=== PATIENT | female | born 1960 | race Caucasian/White ===

== ENCOUNTER → 2017-02-26 | Emergency (ER) | payer MEDICAID, SELFPAY | PROVIDERS: Family Provider Nurse Practitioner Family | DX: H69.83 Other specified disorders of Eustachian tube, bilateral (principal); F17.210 Nicotine dependence, cigarettes, uncomplicated; E11.9 Type 2 diabetes mellitus without complications; I10 Essential (primary) hypertension; J44.9 Chronic obstructive pulmonary disease, unspecified; K21.9 Gastro-esophageal reflux disease without esophagitis; Z79.84 Long term (current) use of oral hypoglycemic drugs; Z79.82 Long term (current) use of aspirin; Z79.51 Long term (current) use of inhaled steroids; Z79.899 Other long term (current) drug therapy; Z88.5 Allergy status to narcotic agent | CPT/HCPCS: 99201 ==

== ENCOUNTER → 2017-05-03 14:53 | Outpatient (CLI) | payer MEDICAID, SELFPAY ==
--- NOTE | 2017-05-03 14:56 | MR_ITS ---
MR head/brain wo con HISTORY: Confusion, altered level of consciousness, short-term memory loss ITS.REASON: SHORT TERM MEMORY LOSS ORDERING PHYSICIAN: Samantha Goss PATIENT AGE: 57 years COMPARISON: None TECHNIQUE: Standard multiplanar multiecho sequences are performed without contrast. FINDINGS: No midline shift, mass effect, hydrocephalus, or acute infarction is evident. There are scattered periventricular and subcortical T2 white matter hyperintensities which may be related to ischemic gliotic change from microvascular disease. Differential diagnosis includes demyelinating process or migraine headache. Slight increased signal also noted in the gregory. No intra or extra-axial mass evident. There is a partial empty sella as a normal variant. The cerebellopontine angles, cerebellum, and brainstem are unremarkable. Hippocampal gyri are unremarkable in the temporal horns are symmetric. IMPRESSION: 1. No acute intracranial findings. 2. Scattered periventricular and subcortical T2 white matter hyperintensities nonspecific and may be related to ischemic gliotic change from microvascular disease with differential diagnosis including migraine headache and demyelinating process. There is some increased T2 signal in the gregory as well
== END ==
PROVIDERS: Family Provider Nurse Practitioner Family; PCP Nurse Practitioner Family; Visit Provider Nurse Practitioner Family
DX: R41.3 Other amnesia (principal)
CPT/HCPCS: 70551

== ENCOUNTER 2017-06-06 17:49 | Emergency (ER) | payer MEDICAID, SELFPAY ==
[2017-06-06 18:04] VITALS: BP 176/93; PULSE 84; RESP 20; TEMP 36.6; O2SAT 94; BMI 42.0
--- NOTE | 2017-06-06 18:15 | HMH.EDUTC ---
[facility] [place] Impression: COPD exacerbation Disposition: Home, Self-Care Condition on Discharge: Good Instructions: DI for Chronic Bronchitis, DI for Chronic Obstructive Pulmonary Disease Additional Instructions: * STOP SMOKING!!!! * start antibiotic today. Be sure to complete entire prescription even if feeling better. * Monitor Temp. FU if fever develops * humidifier/vaporizer/hot steamy shower * Inhaler or neb every 4-6 hours as needed like we discussed. Should help open airways and improve cough, wheezing, shortness of breath. * Mucinex during the day for your cough and cough suppressant only at night. Be sure to drink lots of water. Insurance may not cover a prescription of mucinex. Might be cheaper to get 400mg tablets and take 2 tablets morning, midday and evening all with lots of water. * Start steroid tomorrow since you had injection today. Helps with inflammation therefore, cough and wheezing. Follow directions on package. Rvwd side effects. Pt reports they have taken them before. * Monitor blood sugars closely. Will increase with steroids but necessary with your wheezing and Shortness of breath * wear home oxygen throughout day if feeling short of breath Prescriptions: Azithromycin [Z-Malcom 250mg Tab] 250 mg PO UD DOSE PK #6 tab predniSONE [Deltasone 10mg tablet] 10 mg PO BID #10 tab Referrals: Samantha Goss APRN [Primary Care Provider] - (Call tomorrow for follow up appt in 2 days. Report in [facility], dx COPD exacerbation, neg CXR, and encouraged to follow up. Return to ER for new or worsening symptoms. 911 for difficulty breathing. ) Time of Disposition: 19:58 Medical Decision Making - Thom Inquiry Pt receiving controlled substance: No Vital Signs: 06/06/17 18:04 06/06/17 19:05 06/06/17 19:54 Temperature 97.9 F 97.9 F Temperature Source Temporal Artery Scan Temporal Artery Scan Pulse Rate 85 86 Pulse Rate [Brachial] 84 Respiratory Rate 20 18 Blood Pressure 176/93 Blood Pressure [Right Arm] 176/93 Blood Pressure Mean [Right Arm] 120 02 Sat by Pulse Oximetry 94 L Oxygen Delivery Method Room Air Room Air - Lab Data Lab Results 06/06/17 18:05: Influenza Type A Ag Negative, Influenza Type B Ag Negative 06/06/17 18:10: Strep Scn Rapid Clinic Negative Orders (Tests/Meds): ED MEDICATIONS Discontinued Medications Generic Name Dose Route Start Last Admin Trade Name Tommy PRN Reason Stop Dose Admin Albuterol/Ipratropium 3 ml 06/06/17 18:47 06/06/17 19:05 Duoneb 3ml Neb IH 06/06/17 18:48 3 ml ONCE ONE Administration Methylprednisolone Sodium Succinate 125 mg 06/06/17 18:47 06/06/17 18:59 Solu-Medrol 125mg/2ml Vial IM 06/06/17 18:48 125 mg ONCE ONE Administration ORDERS Category Date Time Status Strep Screen Confirmation Stat Micro 06/06/17 18:10 Received - Reevaluation(s) Reevaluation #1: improved w/ duoneb and steroid. Lungs clear but still wheezy. No sign of resp distress. Coughing much less. [facility] [place] - General Stated complaint: URI Time Seen by Provider: 06/06/17 18:15 Mode of Arrival: Ambulatory Source of Information: Patient Limitations: No Limitations Description of Symptoms (Recalled from Triage Doc. by RN): STUFFY HEAD AND CONGESTION, COUGHING AT NIGHT. MAYBE A FEVER HEENT Symptoms (Recalled from RN notes): Yes Resp Symptoms (Recalled from RN notes): Yes Skin Symptoms (Recalled from RN notes): No MS Symptoms (Recalled from RN notes): No Functional Status (Recalled from RN notes): NA - History of Present Illness Provider Complaint: c/o nasal congestion, head pressure and productive cough x 2-3 days. Cough worse at night, with talking or with exertion. Hx of COPD. Albuterol inhaler and nebs PRN. Denies other inhalers or COPD meds. Continues to smoke. Wears oxygen at night. Unsure of baseline Pulse oximetry. SOA, Wheezing. Hasn't used albuterol or nebs today. I just haven't been home to do it . Hasn't taken or
[2017-06-06 18:21] LABS: UTC Strep Screen (Rapid) Negative (Negative)
[2017-06-06 18:21] LABS: UTC Influenza A Antigen Negative (Negative); UTC Influenza B Antigen Negative (Negative)
--- NOTE | 2017-06-06 18:27 | ED_ITS ---
[facility] [place] Impression: COPD exacerbation Disposition: Home, Self-Care Condition on Discharge: Good Instructions: DI for Chronic Bronchitis, DI for Chronic Obstructive Pulmonary Disease Additional Instructions: * STOP SMOKING!!!! * start antibiotic today. Be sure to complete entire prescription even if feeling better. * Monitor Temp. FU if fever develops * humidifier/vaporizer/hot steamy shower * Inhaler or neb every 4-6 hours as needed like we discussed. Should help open airways and improve cough, wheezing, shortness of breath. * Mucinex during the day for your cough and cough suppressant only at night. Be sure to drink lots of water. Insurance may not cover a prescription of mucinex. Might be cheaper to get 400mg tablets and take 2 tablets morning, midday and evening all with lots of water. * Start steroid tomorrow since you had injection today. Helps with inflammation therefore, cough and wheezing. Follow directions on package. Rvwd side effects. Pt reports they have taken them before. * Monitor blood sugars closely. Will increase with steroids but necessary with your wheezing and Shortness of breath * wear home oxygen throughout day if feeling short of breath Prescriptions: Azithromycin [Z-Malcom 250mg Tab] 250 mg PO UD DOSE PK #6 tab predniSONE [Deltasone 10mg tablet] 10 mg PO BID #10 tab Referrals: Samantha Goss APRN [Primary Care Provider] - (Call tomorrow for follow up appt in 2 days. Report in [facility], dx COPD exacerbation, neg CXR, and encouraged to follow up. Return to ER for new or worsening symptoms. 911 for difficulty breathing. ) Time of Disposition: 19:58 Medical Decision Making - Thom Inquiry Pt receiving controlled substance: No Vital Signs: 06/06/17 18:04 06/06/17 19:05 06/06/17 19:54 Temperature 97.9 F 97.9 F Temperature Source Temporal Artery Scan Temporal Artery Scan Pulse Rate 85 86 Pulse Rate [Brachial] 84 Respiratory Rate 20 18 Blood Pressure 176/93 Blood Pressure [Right Arm] 176/93 Blood Pressure Mean [Right Arm] 120 02 Sat by Pulse Oximetry 94 L Oxygen Delivery Method Room Air Room Air - Lab Data Lab Results 06/06/17 18:05: Influenza Type A Ag Negative, Influenza Type B Ag Negative 06/06/17 18:10: Strep Scn Rapid Clinic Negative Orders (Tests/Meds): ED MEDICATIONS Discontinued Medications Generic Name Dose Route Start Last Admin Trade Name Tommy PRN Reason Stop Dose Admin Albuterol/Ipratropium 3 ml 06/06/17 18:47 06/06/17 19:05 Duoneb 3ml Neb IH 06/06/17 18:48 3 ml ONCE ONE Administration Methylprednisolone Sodium Succinate 125 mg 06/06/17 18:47 06/06/17 18:59 Solu-Medrol 125mg/2ml Vial IM 06/06/17 18:48 125 mg ONCE ONE Administration ORDERS Category Date Time Status Strep Screen Confirmation Stat Micro 06/06/17 18:10 Received - Reevaluation(s) Reevaluation #1: improved w/ duoneb and steroid. Lungs clear but still wheezy. No sign of resp distress. Coughing much less. [facility] [place] - General Stated complaint: URI Time Seen by Provider: 06/06/17 18:15 Mode of Arrival: Ambulatory Source of Information: Patient Limitations: No Limitations Description of Symptoms (Recalled from Triage Doc. by RN): STUFFY HEAD AND CONGESTION, COUGHING AT NIGHT. MAYBE A FEVER HEENT Symptoms (Recalled from RN note
--- NOTE | 2017-06-06 18:47 | XR_ITS ---
XR chest 2V HISTORY: ITS.REASON: COPD, cough, SOA, wheezing, tobacco ORDERING PHYSICIAN: Francisca Vann PATIENT AGE: 57 years COMPARISON: 05/23/2016 FINDINGS: The cardiomediastinal silhouette and pulmonary vascularity are within normal limits. There is increased density in the right hilar region with a curious component medial to the right hilum which may be related to atelectasis. On the lateral view there is patchy density in each are clear space cyst with an area of atelectasis or infiltrate not readily apparent on the previous exam. The remaining lungs are clear. No acute bony abnormalities. IMPRESSION: Patchy atelectasis or infiltrate in the anterior clear space. Mild prominence of the right hilum. Recommended follow until clear
[2017-06-06 19:05] VITALS: PULSE 85
[2017-06-06 19:54] VITALS: BP 176/93; PULSE 86; RESP 18; TEMP 36.6; O2SAT 89
== END 2017-06-06 19:58 | disposition home or self-care (01) ==
PROVIDERS: Emergency Provider Nurse Practitioner Family; Family Provider Nurse Practitioner Family; PCP Nurse Practitioner Family
DX: J44.1 Chronic obstructive pulmonary disease with (acute) exacerbation (principal); E11.9 Type 2 diabetes mellitus without complications; E78.5 Hyperlipidemia, unspecified; F41.8 Other specified anxiety disorders; Z88.6 Allergy status to analgesic agent; Z79.899 Other long term (current) drug therapy
CPT/HCPCS: 71046; 87804; 87880; 96372; 99202

== ENCOUNTER → 2017-08-15 10:43 | Outpatient (CLI) | payer MEDICAID, SELFPAY ==
--- NOTE | 2017-08-15 10:47 | XR_ITS ---
XR chest 2V HISTORY: ITS.REASON: PNEUMONIA RLL, COPD ORDERING PHYSICIAN: Samantha Goss PATIENT AGE: 57 years COMPARISON: 06/12/2017 FINDINGS: Unremarkable cardiovascular structures. Previously described right sided pneumonia and perihilar atelectatic changes have improved. No lobar consolidation or collapse. The lungs are clear bilaterally. No acute bony anomalies. IMPRESSION: No acute finding. Resolved right sided pneumonia
== END ==
PROVIDERS: PCP Nurse Practitioner Family; Visit Provider Nurse Practitioner Family
DX: J18.1 Lobar pneumonia, unspecified organism (principal); J44.0 Chronic obstructive pulmonary disease with (acute) lower respiratory infection
CPT/HCPCS: 71046

== ENCOUNTER → 2018-06-30 11:04 | Outpatient (CLI) | payer MEDICAID, SELFPAY ==
--- NOTE | 2018-06-30 11:10 | XR_ITS ---
XR knee RT 3V Ordering Physician: Samantha Goss APRN Patient Age: 58 years: Female HISTORY: ITS.REASON: RT KNEE JOINT SWELLING . Needle pain after fall twisted knee. TECHNIQUE: 3 view right knee nonweightbearing COMPARISON :No previous studies for comparison FINDINGS . The right knee is intact with no fracture nor dislocation. No joint effusion. There is borderline narrowing at the medial compartment with slight sharpening the joint margins which may reflect some early degenerative changes but unimpressive. No significant joint effusion. IMPRESSION: Right knee intact. No fracture. No acute findings. No joint effusion Borderline narrowing medial compartment
== END ==
PROVIDERS: PCP Family Medicine; Visit Provider Nurse Practitioner Family
DX: M25.461 Effusion, right knee (principal)
CPT/HCPCS: 73562

== ENCOUNTER → 2018-07-24 10:10 | Outpatient (CLI) | payer MEDICAID, SELFPAY ==
--- NOTE | 2018-07-24 10:18 | XR_ITS ---
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 The lunate is abnormal been fragmented and small and may be due to old fracture with avascular necrosis. There is a calcific density noted anteriorly at the radiocarpal joint measuring 6 mm as seen on the lateral view and may represent displacement of the lunate fragment. CT may confirm these findings. There are mild osteoarthritic changes of the radioscaphoid joint. IMPRESSION: 1. Fragmented and small lunate with displaced fragment noted anteriorly possibly due to avascular processes with fragmentation versus old injury 2. Sclerotic appearance of the proximal aspect of the scaphoid which may be seen with avascular necrosis with osteoarthritic changes noted
--- NOTE | 2018-07-24 10:18 | XR_ITS ---
XR hand RT min 3V HISTORY: ITS.REASON: RT HAND PAIN AND SWELLING ORDERING PHYSICIAN: Samantha Goss APRN PATIENT AGE: 58 years COMPARISON: None FINDINGS: No fracture or dislocation. No lytic or blastic change. There is normal mineralization.. The joint spaces are well-preserved. No significant degenerative/arthritic changes. No erosive changes evident.. The wrist is abnormal. Please see the wrist report for further description IMPRESSION: Unremarkable hand. Abnormal wrist. Please see wrist report for further description
== END ==
PROVIDERS: PCP Nurse Practitioner Family; Visit Provider Nurse Practitioner Family
DX: M25.531 Pain in right wrist (principal); M79.89 Other specified soft tissue disorders
CPT/HCPCS: 73110; 73130

== ENCOUNTER 2018-08-18 10:50 | Outpatient (RCR) | payer MEDICAID, SELFPAY | END 2018-08-18 10:55 | disposition home or self-care (01) | LOC: OT 10:50 | PROVIDERS: Visit Provider Orthopaedic Surgery | DX: M19.031 Primary osteoarthritis, right wrist | CPT/HCPCS: 97763 ==

== ENCOUNTER → 2018-10-12 09:59 | Outpatient (CLI) | payer MEDICAID, SELFPAY ==
--- NOTE | 2018-10-12 10:07 | XR_ITS ---
XR hand LT min 3V HISTORY: Pain and swelling ITS.REASON: LT HAND PAIN AND SWELLING ORDERING PHYSICIAN: Samantha Goss APRN PATIENT AGE: 58 years COMPARISON: None FINDINGS: No acute fracture. There is mild lateral subluxation of the first metacarpal. No other significant anomalies are evident. IMPRESSION: Mild lateral subluxation the first metacarpal otherwise negative
== END ==
PROVIDERS: PCP Family Medicine; Visit Provider Nurse Practitioner Family
DX: M79.89 Other specified soft tissue disorders (principal); M79.642 Pain in left hand
CPT/HCPCS: 73130

== ENCOUNTER → 2018-11-10 14:05 | Outpatient (CLI) | payer MEDICAID, SELFPAY ==
[2018-11-10 14:54] LABS: Basophils % 0.3 % (0.1-2.0); Eosinophils # 0.1 K/mm3 (0.0-0.4); Eosinophils % 1.4 % (0.1-12.0); Hematocrit 46.2 % (37.0-47.0); Hemoglobin 15.9 g/dL (12.2-16.2); Lymphocytes # 2.5 K/mm3 (0.7-4.5); Mean Corpuscular HGB Conc 34.5 g/dL (31.8-35.4); Mean Corpuscular Hemoglobin 32.4 pg (27.0-31.2); Mean Corpuscular Volume 93.9 fl (81-99); Mean Platelet Volume 8.6 fl (7.4-10.4); Monocytes # 0.5 K/mm3 (0.1-1.0); Monocytes % 5.1 % (1.7-9.3); Neutrophils # 6.4 K/mm3 (1.8-7.8); Neutrophils % 67.2 % (37.0-80.0); Platelet Count 184 K/mm3 (142-424); Red Blood Count 4.92 M/mm3 (4.20-5.40); Red Cell Distribution Width 13.5 % (11.5-17.5); White Blood Count 9.6 K/mm3 (4.8-10.8)
[2018-11-10 15:49] LABS: Anion Gap 14.1 mEq/L (5-15); Blood Urea Nitrogen 10 mg/dL (7-18); Calcium 9.4 mg/dL (8.5-10.1); Carbon Dioxide 29 mmol/L (21.0-32.0); Chloride 102 mmol/L (98-107); Creatinine,Serum 0.92 mg/dL (0.55-1.02); Estimated Glomerular Filt Rate 62 ml/min (>60); GFR (African American) 75 ML/MIN (>60); Glucose 208 mg/dL (74-106); Potassium 4.1 mmoL/L (3.5-5.1); Sodium 141 mmol/L (136-145)
== END ==
PROVIDERS: Visit Provider Surgery
DX: L02.91 Cutaneous abscess, unspecified (principal)
CPT/HCPCS: 36415; 80048; 85025

== ENCOUNTER → 2018-11-30 11:54 | Outpatient (CLI) | payer MEDICAID, SELFPAY ==
--- NOTE | 2018-11-30 12:03 | XR_ITS ---
PROCEDURE: XR CHEST 2V CLINICAL HISTORY: COPD COPD, cough, smoker COMPARISON: CXR2V XR chest 2V from 08/15/2017 FINDINGS: The cardiomediastinal silhouette and pulmonary vascularity are within normal limits. There are increased markings in both lower lung zones suspicious for bibasilar infiltrates. Upper lobes are clear. Mild atelectatic or fibrotic changes are present in the anterior clear space. No acute bony abnormalities. IMPRESSION: Bibasilar infiltrates Dictated by: Neto Salazar MD 11/30/2018 12:58 Electronically signed by Neto Salazar MD in [place] 11/30/2018 12:58
--- NOTE | 2018-11-30 12:10 | XR_ITS ---
PROCEDURE: XR LUMBAR SPINE MIN 4V CLINICAL INDICATION: low back pain Low back pain COMPARISON: No exams were available for comparison FINDINGS: There is minimal lumbar curvature convex right. Multilevel degenerative disc disease is present from T12-S1. There is anterolisthesis of L4 on L5 of 8 mm. Facet arthritic changes are present at L5-S1. The SI joints have an unremarkable appearance. No fracture or dislocation. No lytic or blastic change. Incidental vascular calcifications are present. Surgical clips are present in the right upper quadrant and left upper quadrant. IMPRESSION: Lumbar spondylosis with degenerative disc disease and facet arthritic change as detailed above Dictated by: Neto Salazar MD 11/30/2018 12:47 Electronically signed by Neto Salazar MD in [place] 11/30/2018 12:47
== END ==
PROVIDERS: PCP Nurse Practitioner Family; Visit Provider Nurse Practitioner Family
DX: J44.9 Chronic obstructive pulmonary disease, unspecified (principal); M54.5 Low back pain
CPT/HCPCS: 71046; 72110

== ENCOUNTER → 2019-06-15 11:29 | Outpatient (CLI) | payer OTHER, SELFPAY ==
--- NOTE | 2019-06-15 11:36 | XR_ITS ---
PROCEDURE: XR LUMBAR SPINE MIN 4V CLINICAL INDICATION: LOW BACK INJURY Pain radiating down both legs COMPARISON: XR LUMBAR SPINE MIN 4V from 11/30/2018 FINDINGS: There is no acute fracture. There is approximately 12 millimeters anterior subluxation L4 on L5 which is increased over the interval and there is 6 millimeters of new anterior subluxation of L3 on L4. There is degenerative disc disease with loss of multiple disc space heights including L2-3 L3-4 L4-5 and to lesser degree L5-S1. Prominent hypertrophic facet disease is seen bilateral at L5-S1. Incidental note is made of atherosclerotic calcification in the abdominal aorta. IMPRESSION: Interval increase in subluxation of L4 on L5 and new anterior subluxation of L3 on L4. Flexion and extension views could assess for ligamentous instability of felt to be clinically indicated. Degenerative disc and facet disease as described. Dictated by: Camron Ash 06/15/2019 12:27 Electronically signed by Camron Ash in [place] 06/15/2019 12:27
== END ==
PROVIDERS: PCP Nurse Practitioner Family; Visit Provider Nurse Practitioner Family
DX: S39.92XA Unspecified injury of lower back, initial encounter (principal)
CPT/HCPCS: 72110

== ENCOUNTER → 2019-06-20 10:30 | Outpatient (CLI) | payer OTHER, SELFPAY ==
--- NOTE | 2019-06-20 10:33 | MR_ITS ---
PROCEDURE: MR LUMBAR SPINE WO CON CLINICAL INDICATION: SUBLUXATION COMOPLEX, INJURY OF LOW BACK Low back pain, pain down both feet, fall with injury and pain COMPARISON: [employer]/O MRI-L-SPINE W/O from 09/28/2016 BRAINWO MR head/brain wo con from 05/03/2017 XR LUMBAR SPINE MIN 4V from 06/15/2019 TECHNIQUE: Standard multiplanar multiecho sequences are performed without contrast. 3-D MIP and myelographic images are also rendered and reviewed FINDINGS: The spinal cord ends at the T12-L1 level. T11-T12, T12-L1 show mild endplate irregularity with some slight decrease in the disc space. L1-L2: Unremarkable. L2-L3: Degenerative disc disease with bulging disc along with facet and ligamentum hypertrophy. There is resultant severe bilateral lateral recess narrowing and bilateral foraminal narrowing slightly greater on the left. There is transverse narrowing of the canal at 8 mm. These findings have progressed slightly compared to the previous exam. L3-L4: Mild degenerative disc disease with bulging disc with facet ligamentum hypertrophy with resultant severe bilateral lateral recess narrowing and mild bilateral foraminal narrowing. There is canal stenosis at this level with the canal measuring 7 mm in AP dimension with also severe transverse narrowing of the canal. This has progressed since the previous exam. L4-5: Degenerative disc disease with bulging disc. There is 5 mm anterolisthesis of L4. There is facet and ligamentum hypertrophy with severe canal stenosis with both transverse and AP narrowing of the canal similar to the previous exam. There is moderate bilateral lateral recess narrowing and severe bilateral foraminal narrowing. The transverse dimension of the canal is 6 mm. The AP dimension is approximately 10 mm. Incidental note made of a small lipoma in the L4 vertebral body on the left at 1 cm L5-S1: Degenerate disc disease with mild retrolisthesis of L5 of 3 mm with bulging disc with facet ligamentum hypertrophy with moderate right and mild left foraminal narrowing. This is not significantly changed. IMPRESSION: 1. Abnormal MRI of the lumbar spine with multilevel lumbar spondylosis as detailed above. Please see above for detailed description at each level. 2. L2-L3: Degenerative disc disease with bulging disc along with facet and ligamentum hypertrophy. There is resultant severe bilateral lateral recess narrowing and bilateral foraminal narrowing slightly greater on the left. There is transverse narrowing of the canal at 8 mm. These findings have progressed slightly compared to the previous exam. 3. L3-L4: Mild degenerative disc disease with bulging disc with facet ligamentum hypertrophy with resultant severe bilateral lateral recess narrowing and mild bilateral foraminal narrowing. There is canal stenosis at this level with the canal measuring 7 mm in AP dimension with also severe transverse narrowing of the canal. This has progressed since the previous exam. 4. L4-5: Degenerative disc disease with bulging disc. There is 5 mm anterolisthesis of L4. There is facet and ligamentum hypertrophy with severe canal stenosis with both transverse and AP narrowing of the canal similar to the previous exam. There is moderate bilateral lateral recess narrowing and severe bilateral foraminal narrowing. The transverse dimension of the canal is 6 mm. The AP dimension is approximately 10 mm. Incidental note made of a small lipoma in the L4 vertebral body on the left at 1 cm 5. L5-S1: Degenerate disc disease with mild retrolisthesis of L5 of 3 mm with bulging disc with facet ligamentum hypertrophy with moderate right and mild left foraminal narrowing. This is not significantly changed. 6. No extruded herniated disc evident Dictated by: Percy
== END ==
PROVIDERS: PCP Nurse Practitioner Family; Visit Provider Nurse Practitioner Family
DX: M99.13 Subluxation complex (vertebral) of lumbar region (principal); S39.92XA Unspecified injury of lower back, initial encounter
CPT/HCPCS: 72148; 76376